=== PATIENT | male | born 1985 | race African-American/Black ===

== ENCOUNTER 2021-06-24 12:43 | Emergency (ER) | payer MEDICAID ==
[~2021-06-24] VITALS: Ht 177.8 cm; Wt 102.0 kg
[2021-06-24 12:59] VITALS: BP 134/83
[2021-06-24] MEDS ORDERED: KETOROLAC 30MG/ML VIAL IM ONE (13:15)
[2021-06-24] MEDS ORDERED: IBUP-2029 MT (13:19)
[2021-06-24 13:28] LABS: CLARITY URINE CLEAR (CLEAR); COLOR URINE YELLOW (YELLOW); KETONES URINE TRACE (NEGATIVE); LEUKOCYTE ESTERASE URINE NEGATIVE (NEGATIVE); NITRITE URINE NEGATIVE (NEGATIVE); OCCULT BLOOD URINE NEGATIVE (NEGATIVE); PH URINE 6.5 (4.5-8.0); PROTEIN URINE NEGATIVE (NEGATIVE); SPECIFIC GRAVITY URINE 1.027 (1.005-1.030)
[2021-06-26 05:10] LABS: NEISSERIA GONORRHOEAE NAA Negative (Negative)
== END 2021-06-24 14:27 | disposition home or self-care (01) ==
LOC: ER 12:43
DX: L91.8 Other hypertrophic disorders of the skin (principal); R03.0 Elevated blood-pressure reading, without diagnosis of hypertension
CPT/HCPCS: 81003; 87491; 87591; 99283; J1885